=== PATIENT | female | born 1975 | race Caucasian/White ===

== ENCOUNTER → 2020-09-24 | Outpatient (CLI) | payer BC ==
--- NOTE | 2020-09-26 14:26 | MM ---
Reason for exam: screening (asymptomatic). Baseline mammogram. History: Patient had first child at age 33. Family history of breast cancer in maternal aunt at age 50. Physical Findings: Nurse did not find any significant physical abnormalities on exam. MG Screening Mammo w CAD Bilateral CC and MLO view(s) were taken. There are scattered fibroglandular densities. ASSESSMENT: Benign, BI-RAD 2 RECOMMENDATION: Routine screening mammogram of both breasts in 1 year.
== END | disposition home or self-care (01) ==
LOC: RADMAMWWP 14:27
PROVIDERS: ATTEND Family Medicine
DX: Z12.31 Encounter for screening mammogram for malignant neoplasm of breast (principal); Z80.3 Family history of malignant neoplasm of breast
CPT/HCPCS: 77067

== ENCOUNTER → 2020-12-11 | Outpatient (CLI) | payer BC ==
--- NOTE | 2020-12-11 19:32 | US ---
EXAMINATION TYPE: US thyroid st tissue head/neck DATE OF EXAM: 12/11/2020 COMPARISON: NONE CLINICAL HISTORY: 45-year-old female E04.9 Goiter. Neck thickening; patient stated thyroid bloodwork is normal. GLAND SIZE: Right Lobe: 6.3 x 2.9 x 3.2 cm Overall Parenchyma: heterogenous Left Lobe: 4.6 x 1.9 x 1.7 cm Overall Parenchyma: homogeneous Isthmus Thickness: 0.4 cm NODULES RIGHT: # of nodules measured on right: 2 with largest measured as consolidation of multilobular are a 1. 4.4 X 3.4 x 3.9 cm, mid and lower pole , TR3 solid or almost completely solid, multilobular and very heterogeneous nodule, which is wider than tall, with lobulated or irregular margins, without ech ogenic foci. 2. 0.8 X 0.9 x 0.6 cm, upper pole, solid or almost completely solid, hypoechoic TR 4 nodule, which is wider than tall, with smooth margins, without echogenic foci. LEFT: # of nodules measured on left: 1 1. 0.4 X 0.3 x 0.3 cm, lower pole, solid or almost completely solid, hypoechoic TR 4 nodule, which is wide as is tall, with smooth margins, without echogenic foci. ISTHMUS: # of nodules measured in the isthmus: 0 Bilateral neck scanned: superior to left thyroid 2 lymph nodes are seen with largest = 1.5 x 1.0 x 0. 8cm., Prominent but nonenlarged IMPRESSION: 1. Nodular and enlarged right lobe of the thyroid gland. There is a very heterogeneous lobulated nodu le within the right lower pole measuring up to 4.4 cm. FNA can be performed. 2. Two additional small solid TR 4 nodules, one on each side, measuring up to 9 mm can be followed.
== END | disposition home or self-care (01) ==
LOC: RADUSWWP 13:30
PROVIDERS: ATTEND Family Medicine
DX: E04.2 Nontoxic multinodular goiter (principal)
CPT/HCPCS: 76536

== ENCOUNTER 2021-01-27 14:41 | Inpatient (IN) | payer BC ==
[2021-01-27] MEDS ORDERED: MORPHINE SULFATE 4 MG/ML SYRINGE IVP STA (15:53)
[2021-01-27] MEDS ORDERED: ONDANSETRON 4 MG/2 ML VIAL IVP STA (15:53)
[2021-01-27] MEDS ORDERED: SODIUM CHLORIDE 0.9% 1,000 ML IV STA (15:53)
[2021-01-27] MEDS ORDERED: ACETAMINOPHEN TAB 500 MG TAB PO STA (15:53)
--- NOTE | 2021-01-27 16:04 | ED ---
General Adult HPI - General Source: patient, RN notes reviewed Mode of arrival: ambulatory Limitations: no limitations <Billy Gandhi - Last Filed: 01/27/21 17:02> <Yovanny Garza - Last Filed: 01/27/21 19:31> - General Chief complaint: Abdominal Pain Stated complaint: Abdominal Pain Time Seen by Provider: 01/27/21 15:47 - History of Present Illness Initial comments: 45-year-old female presents to the emergency room for a chief complaint of abdominal pain. Patient has had lower abdominal pain since yesterday morning. States yesterday it was very slight. However today she states is much worse. It is throughout her lower abdomen. Denies nausea vomiting diarrhea. Denies any cold symptoms. States that on her ride over all the bumps in the road were hurting. Doesn't seem to hurt in the upper abdomen. Was not aware of fevers until she got to the emergency room.Patient has no other complaints at this time including shortness of breath, chest pain, nausea or vomiting, headache, or visual changes. (Billy Gandhi) - Related Data Home Medications Medication Instructions Recorded Confirmed [id number] Acid 1 each PO DAILY 09/06/13 09/20/13 [-U Capsule] Previous Rx's Medication Instructions Recorded Ibuprofen [Motrin] 200 - 400 mg PO Q6HR PRN #1 tab 09/19/13 Cephalexin [Keflex] 500 mg PO Q6HR #40 cap 09/21/13 Allergies Allergy/AdvReac Type Severity Reaction Status Date / Time No Known Allergies Allergy Verified 01/27/21 15:09 Review of Systems ROS Other: All systems not noted in ROS Statement are negative. <Billy Gandhi - Last Filed: 01/27/21 17:02> ROS Other: All systems not noted in ROS Statement are negative. <Yovanny Garza - Last Filed: 01/27/21 19:31> ROS Statement: Those systems with pertinent positive or pertinent negative responses have been documented in the HPI. Past Medical History Past Medical History: No Reported History History of Any Multi-Drug Resistant Organisms: None Reported Past Surgical History: Section Past Anesthesia/Blood Transfusion Reactions: No Reported Reaction Past Psychological History: Depression Smoking Status: Never smoker Past Alcohol Use History: None Reported Past Drug Use History: None Reported <Billy Gandhi - Last Filed: 01/27/21 17:02> General Exam Limitations: no limitations General appearance: alert, in no apparent distress Head exam: Present: atraumatic Eye exam: Present: normal appearance, PERRL, EOMI. Absent: scleral icterus, conjunctival injection ENT exam: Present: normal exam, mucous membranes moist Neck exam: Present: normal inspection, full ROM. Absent: tenderness Respiratory exam: Present: normal lung sounds bilaterally. Absent: respiratory distress, wheezes Cardiovascular Exam: Present: regular rate, normal rhythm, normal heart sounds GI/Abdominal exam: Present: soft, normal bowel sounds. Absent: distended, tenderness Neurological exam: Present: alert <Billy Gandhi - Last Filed: 01/27/21 17:02> Course Vital Signs 01/27/21 01/27/21 01/27/21 15:06 16:09 18:19 Temperature 101.1 F H 101 F H Pulse Rate 95 87 Respiratory 17 20 20 Rate Blood Pressure 136/89 126/84 O2 Sat by Pulse 98 99 Oximetry Medical Decision Making - Lab Data Result diagrams: 01/27/21 16:24 01/27/21 16:24 <Billy Gandhi - Last Filed: 01/27/21 17:02> - Lab Data Result diagrams: 01/27/21 16:24 01/27/21 16:24 - Radiology Data Radiology results: report reviewed (Extensive inflammatory changes diverticulitis) <Yovanny Garza - Last Filed: 01/27/21 19:31> - Medical Decision Making care signed out to Dr Garza, 5 pm. (Billy Gandhi) Patient reevaluated by myself, Dr. Garza. Patient is resting comfortably in bed. Abdomen is soft with moderate tenderness left lower quadrant. CT and labs reviewed. Case discussed with Dr. Bueno, who will admit covering Dr. Scanlon. (Yovanny Garza) - Lab Data Lab Results 01/27/21 01/27/21 01/27/21 Range/Units 16:24 16:24 16:24 WBC 12.2 H (3.8-10.6) k/uL RBC 4.70 (3.80-5.40) m/uL Hgb 14.2 (11.4-16.0) gm/dL Hct 41.0 (34.0-46.0) % MCV 87.1 (80.0-100.0) fL MCH 30.2 (25.0-35.0) pg MCHC 34.6 (31.0-37.0) g/dL RDW 12.9 (11.5-15.5) % Plt Count 239 (150-450) k/uL MPV 8.5 Neutrophils % 86 % Lymphocytes % 9 % Monocytes % 4 % Eosinophils % 1 % Basophils % 0 % Neutrophils # 10.4 H (1.3-7.7) k/uL Lymphocytes # 1.1 (1.0-4.8) k/uL Monocytes # 0.5 (0-1.0) k/uL Eosinophils # 0.1 (0-0.7) k/uL Basophils # 0.0 (0-0.2) k/uL Sodium 136 L (137-145) mmol/L Potassium 3.6 (3.5-5.1) mmol/L Chloride 101 (98-107) mmol/L Carbon Dioxide 25 (22-30) mmol/L Anion Gap 10 mmol/L BUN 12 (7-17) mg/dL Creatinine 0.78 (0.52-1.04) mg/dL Est GFR (CKD-EPI)AfAm >90 (>60 ml/min/1.73 sqM) Est GFR (CKD-EPI)NonAf >90 (>60 ml/min/1.73 sqM) Glucose 144 H (74-99) mg/dL Plasma Lactic Acid [place] (0.7-2.0) mmol/L Calcium 9.4 (8.4-10.2) mg/dL Total Bilirubin 1.6 H (0.2-1.3) mg/dL AST 14 (14-36) U/L ALT 25 (4-34) U/L Alkaline Phosphatase 61 (38-126) U/L Total Protein 6.7 (6.3-8.2) g/dL Albumin 4.0 (3.5-5.0) g/dL Amylase 38 (30-110) U/L Lipase 33 (23-300) U/L Urine Color Yellow Urine Appearance Cloudy H (Clear) Urine pH 6.0 (5.0-8.0) Ur Specific [place] 1.027 (1.001-1.035) Urine Protein 1+ H (Negative) Urine Glucose (UA) Negative (Negative) Urine Ketones 1+ H (Negative) Urine Blood Trace H (Negative) Urine Nitrite Negative (Negative) Urine Bilirubin Negative (Negative) Urine Urobilinogen 3.0 (<2.0) mg/dL Ur Leukocyte Esterase Large H (Negative) Urine RBC 11 H (0-5) /hpf Urine WBC 7 H (0-5) /hpf Ur Squamous Epith Cells 11 H (0-4) /hpf Urine Bacteria Few H (None) /hpf Urine Mucus Many H (None) /hpf Urine HCG, Qual (Not Detectd) Coronavirus (PCR) (Not Detectd) 01/27/21 01/27/21 01/27/21 Range/Units 16:24 16:24 16:24 WBC (3.8-10.6) k/uL RBC (3.80-5.40) m/uL Hgb (11.4-16.0) gm/dL Hct (34.0-46.0) % MCV (80.0-100.0) fL MCH (25.0-35.0) pg MCHC (31.0-37.0) g/dL RDW (11.5-15.5) % Plt Count (150-450) k/uL MPV Neutrophils % % Lymphocytes % % Monocytes % % Eosinophils % % Basophils % % Neutrophils # (1.3-7.7) k/uL Lymphocytes # (1.0-4.8) k/uL Monocytes # (0-1.0) k/uL Eosinophils # (0-0.7) k/uL Basophils # (0-0.2) k/uL Sodium (137-145) mmol/L Potassium (3.5-5.1) mmol/L Chloride (98-107) mmol/L Carbon Dioxide (22-30) mmol/L Anion Gap mmol/L BUN (7-17) mg/dL Creatinine (0.52-1.04) mg/dL Est GFR (CKD-EPI)AfAm (>60 ml/min/1.73 sqM) Est GFR (CKD-EPI)NonAf (>60 ml/min/1.73 sqM) Glucose (74-99) mg/dL Plasma Lactic Acid [place] 1.4 (0.7-2.0) mmol/L Calcium (8.4-10.2) mg/dL Total Bilirubin (0.2-1.3) mg/dL AST (14-36) U/L ALT (4-34) U/L Alkaline Phosphatase (38-126) U/L Total Protein (6.3-8.2) g/dL Albumin (3.5-5.0) g/dL Amylase (30-110) U/L Lipase (23-300) U/L Urine Color Urine Appearance (Clear) Urine pH (5.0-8.0) Ur Specific [place] (1.001-1.035) Urine Protein (Negative) Urine Glucose (UA) (Negative) Urine Ketones (Negative) Urine Blood (Negative) Urine Nitrite (Negative) Urine Bilirubin (Negative) Urine Urobilinogen (<2.0) mg/dL Ur Leukocyte Esterase (Negative) Urine RBC (0-5) /hpf Urine WBC (0-5) /hpf Ur Squamous Epith Cells (0-4) /hpf Urine Bacteria (None) /hpf Urine Mucus (None) /hpf Urine HCG, Qual Not Detected (Not Detectd) Coronavirus (PCR) Not Detected (Not Detectd) Disposition <Billy Gandhi - Last Filed: 01/27/21 17:02> Is patient prescribed a controlled substance at d/c from ED?: No Decision Time: 19:31 <Yovanny Garza - Last Filed: 01/27/21 19:31> Clinical Impression: Diverticulitis Disposition: ADMITTED IP TO THIS HOSP Referrals: Renetta Berger MD [Primary Care Provider] - 1-2 days
[2021-01-27 16:43] LABS: Basophils % (A) 0 %; Eosinophils # (A) 0.1 k/uL (0-0.7); Eosinophils % (A) 1 %; HGB 14.2 gm/dL (11.4-16.0); Lymphocytes # (A) 1.1 k/uL (1.0-4.8); Lymphocytes % (A) 9 %; MCH 30.2 pg (25.0-35.0); MCHC 34.6 g/dL (31.0-37.0); MCV 87.1 fL (80.0-100.0); Mean Platelet Volume 8.5; Monocytes # (A) 0.5 k/uL (0-1.0); Monocytes % (A) 4 %; Neutrophils # (A) 10.4 k/uL (1.3-7.7); Neutrophils % (A) 86 %; Platelet Count 239 k/uL (150-450); RDW 12.9 % (11.5-15.5); WBC 12.2 k/uL (3.8-10.6)
[2021-01-27 16:52] LABS: Appearance,Urine Cloudy (Clear); Bacteria,Urine Few /hpf; Bilirubin,Urine Negative (Negative); Blood,Urine Trace (Negative); Color,Urine Yellow; Glucose,Urine (UA) Negative (Negative); Ketones,Urine 1+ (Negative); Leukocyte Esterase,Urine Large (Negative); Mucus,Urine Many /hpf; Nitrite,Urine Negative (Negative); Protein,Urine 1+ (Negative); RBC,Urine 11 /hpf (0-5); Specific Gravity,Urine 1.027 (1.001-1.035); Squamous Epithelial Cell,Urine 11 /hpf (0-4); WBC,Urine 7 /hpf (0-5)
[2021-01-27 16:56] LABS: ALT 25 U/L (4-34); AST 14 U/L (14-36); African American GFR (CKD) >90 (>60 ml/min/1.73 sqM); Alkaline Phosphatase 61 U/L (38-126); Amylase 38 U/L (30-110); Anion Gap 10 mmol/L; Blood Urea Nitrogen 12 mg/dL (7-17); Calcium 9.4 mg/dL (8.4-10.2); Carbon Dioxide 25 mmol/L (22-30); Chloride 101 mmol/L (98-107); Glucose 144 mg/dL (74-99); Lipase 33 U/L (23-300); Non-African American GFR(CKD) >90 (>60 ml/min/1.73 sqM); Potassium 3.6 mmol/L (3.5-5.1); Sodium 136 mmol/L (137-145); Total Bilirubin 1.6 mg/dL (0.2-1.3); Total Protein 6.7 g/dL (6.3-8.2)
--- NOTE | 2021-01-27 17:58 | CT ---
EXAMINATION TYPE: CT abdomen pelvis w con DATE OF EXAM: 01/27/2021 COMPARISON: None HISTORY: LLQ abdominal pain, fever CT DLP: 2285.9 mGycm Automated exposure control for dose reduction was used. CONTRAST: Performed with IV Contrast, patient injected with 100 ml mL of Isovue 300. Images obtained from the diaphragm to the floor the pelvis with IV contrast. Lung bases are clear. There is no pleural effusion. Heart size is normal. There is no pericardial eff usion. Liver spleen pancreas stomach appear intact. The bile ducts are not dilated. Gallbladder appears norm al. There are small hepatic cysts that measure up to 1 cm. There is no adrenal mass. Kidneys show satisfactory contrast opacification. There is no hydronephrosi s. Ureters are not dilated. Delayed images show normal renal excretion. There is no retroperitoneal a denopathy. Bladder distends smoothly. There is no inguinal hernia. There is no free fluid in the pelv is. There is extensive fat stranding around the mid sigmoid colon. There are sigmoid diverticula. Appendi x is medial and appears normal. There is no evidence of free air. There is no ascites. The lumbar vertebra have normal alignment. Posterior elements are intact. Facet joints are intact. Th e bony pelvis is intact. Hip joints are intact. IMPRESSION: Extensive inflammatory changes around the mid sigmoid colon with fat stranding and edema. There are n umerous sigmoid diverticula. There is mild sigmoid colon wall thickening. There is consistent with ac liz diverticulitis. No drainable fluid collection.
[2021-01-27] MEDS ORDERED: PIPERACILLIN-TAZOBACTAM 3.375 GM in SODIUM CHLORIDE 0.9% 100 ML IVPB STA (19:29)
[2021-01-27] MEDS ORDERED: ONDANSETRON 4 MG/2 ML VIAL IVP PRN (19:31)
[2021-01-27] MEDS ORDERED: NALOXONE 0.4 MG/ML 1 ML VIAL IV PRN (19:31)
[2021-01-27] MEDS ORDERED: HYDROmorphone 1 MG/ML 1 ML SYRINGE IVP PRN (19:31)
[2021-01-27] MEDS ORDERED: HYDROmorphone 0.5 MG/0.5 ML SYRINGE IVP PRN (19:31)
[2021-01-27] MEDS: SODIUM CHLORIDE 0.9% 1,000 ML IV SCH (20:11)
--- NOTE | 2021-01-27 22:28 | P.HPIM ---
History of Present Illness H&P Date: 01/27/21 Chief Complaint: Abdominal pain 45-year-old female with hypertension Patient comes in with 1 day history of lower abdominal pain started yesterday morning when she felt some mild lower abdominal pain didn't think much of it however today was getting worse especially with movement. She felt some chills denies any fevers at home she denies any nausea vomiting or diarrhea denies any GI bleeding. She denies any recent travel. He denies any upper respiratory infection symptoms. Denies any sick contact. She reports that she's been in good health. Denies any urinary changes denies any hematuria dysuria or frequency. Denies any history of renal stones. Patient describes the pain as sharp and sudden happens in the lower belly diffusely, at peak is 8 out of 10 in severity comes and goes. And was worse today than yesterday. Workup in the ED showed leukocytosis. Slightly elevated bilirubin. Urine analysis was a contaminated sample. HCG negative CT of the abdomen showed diffuse diverticular disease with acute diverticulitis no abscess Review of Systems Pertinent positives as noted in HPI. All other systems were reviewed and are negative Past Medical History Past Medical History: No Reported History History of Any Multi-Drug Resistant Organisms: None Reported Past Surgical History: Section Additional Past Surgical History / Comment(s): Thyroid nodule biopsy - negative. Past Anesthesia/Blood Transfusion Reactions: No Reported Reaction Past Psychological History: Depression Additional Psychological History / Comment(s): situational, mild Smoking Status: Never smoker Past Alcohol Use History: None Reported Past Drug Use History: None Reported - Past Family History Mother Additional Family Medical History / Comment(s): Diverticulosis Medications and Allergies Home Medications Medication Instructions Recorded Confirmed Type Cholecalciferol [Vitamin D3 (25 25 mcg PO DAILY 01/27/21 01/27/21 History Mcg = 1000 Iu)] Hydrochlorothiazide 12.5 mg PO DAILY 01/27/21 01/27/21 History [hydroCHLOROthiazide] Phentermine HCl [Adipex P] 15 mg PO DAILY 01/27/21 01/27/21 History Allergies Allergy/AdvReac Type Severity Reaction Status Date / Time No Known Allergies Allergy Verified 01/27/21 20:20 Physical Exam Vitals: Vital Signs Temp Pulse Pulse Resp BP BP Pulse Ox 01/27/21 20:24 98.5 F 78 16 115/80 98 01/27/21 19:54 99.4 F 01/27/21 18:19 101 F H 87 20 126/84 99 01/27/21 16:09 20 01/27/21 15:06 101.1 F H 95 17 136/89 98 Intake and Output 01/27/21 01/27/21 01/27/21 06:59 14:59 22:59 Other: Voiding Method Toilet Weight 129.7 kg Constitutional: No acute distress, conversant, pleasant Eyes: Anicteric sclerae, moist conjunctiva, Pupils equal round reactive to light ENMT: NC/AT Oropharynx clear, no erythema, or exudates Neck: Supple, FROM, no masses, or JVD No carotid bruits No thyromegaly Lungs: Clear to auscultation Clear to percussion Normal respiratory effort, no accessory muscle use Cardiovascular: Heart regular in rate and rhythm, No murmurs, gallops, or rubs No peripheral edema Abdominal: Soft Discomfort to deep palpation of the left lower quadrant, no guarding, rebound or rigidity Abdomen moving with respiration Normoactive bowel sounds No hepatomegaly, No splenomegaly No palpable mass No abdominal wall hernia noted Skin: Normal temperature, tone, texture, turgor No induration No subcutaneous nodules No rash, lesions No ulcers Extremities: No digital cyanosis No clubbing Pedal pulses intact and symmetrical Radial pulses intact and symmetrical No calf tenderness Psychiatric: Alert and oriented to person, place and time Appropriate affect fair judgement Neuro Muscles Strength 5/5 in all 4 extremities Sensation to light touch grossly present throughout Cranial nerves II-XII grossly intact No focal sensory deficits Lymphatics: no palpable cervical or supraclavicular , or inguinal lymph nodes Results CBC & Chem 7: 01/27/21 16:24 01/27/21 16:24 Labs: Abnormal Lab Results - Last 24 Hours (Table) 01/27/21 01/27/21 01/27/21 Range/Units 16:24 16:24 16:24 WBC 12.2 H (3.8-10.6) k/uL Neutrophils # 10.4 H (1.3-7.7) k/uL Sodium 136 L (137-145) mmol/L Glucose 144 H (74-99) mg/dL Total Bilirubin 1.6 H (0.2-1.3) mg/dL Urine Appearance Cloudy H (Clear) Urine Protein 1+ H (Negative) Urine Ketones 1+ H (Negative) Urine Blood Trace H (Negative) Ur Leukocyte Esterase Large H (Negative) Urine RBC 11 H (0-5) /hpf Urine WBC 7 H (0-5) /hpf Ur Squamous Epith Cells 11 H (0-4) /hpf Urine Bacteria Few H (None) /hpf Urine Mucus Many H (None) /hpf Thrombosis Risk Factor Assmnt - Choose All That Apply Any of the Below Risk Factors Present?: Yes Each Factor Represents 1 point: Age 41-60 years, Obesity (BMI >25) Other Risk Factors: No Other congenital or acquired thrombophilia - If yes, enter type in comment: No Thrombosis Risk Factor Assessment Total Risk Factor Score: 2 Thrombosis Risk Factor Assessment Level: Low Risk Assessment and Plan Assessment: Sepsis Acute diverticulitis Follow-up cultures Empiric antibiotics with Zosyn Pain control Empiric antibiotics Zosyn IV fluid hydration with normal saline Monitor vital signs Tylenol for fever Hypertension Hold hydrochlorothiazide Monitor blood pressure DVT prophylaxis heparin subcu 3 times a day Full code Anticipated length of stay more than 2 midnights Anticipated discharge home
[2021-01-28] MEDS: SODIUM CHLORIDE 0.9% 1,000 ML IV SCH ×3 (04:05→20:42)
[2021-01-28] MEDS: PIPERACILLIN-TAZOBACTAM 3.375 GM in SODIUM CHLORIDE 0.9% 100 ML IVPB SCH ×3 (04:06→20:38)
[2021-01-28] MEDS: ACETAMINOPHEN TAB 325 MG TAB PO PRN ×2 (04:42→16:49)
[2021-01-28 05:43] LABS: ALT 20 U/L (4-34); AST 13 U/L (14-36); African American GFR (CKD) >90 (>60 ml/min/1.73 sqM); Albumin 3.3 g/dL (3.5-5.0); Alkaline Phosphatase 59 U/L (38-126); Blood Urea Nitrogen 9 mg/dL (7-17); Calcium 8.7 mg/dL (8.4-10.2); Carbon Dioxide 23 mmol/L (22-30); Chloride 105 mmol/L (98-107); Glucose 106 mg/dL (74-99); Non-African American GFR(CKD) >90 (>60 ml/min/1.73 sqM); Total Bilirubin 1.5 mg/dL (0.2-1.3); Total Protein 5.9 g/dL (6.3-8.2)
[2021-01-28 05:44] LABS: Basophils % (A) 0 %; Eosinophils # (A) 0.1 k/uL (0-0.7); Eosinophils % (A) 1 %; HCT 38.2 % (34.0-46.0); Lymphocytes # (A) 1.2 k/uL (1.0-4.8); Lymphocytes % (A) 13 %; MCH 29.4 pg (25.0-35.0); MCHC 34.1 g/dL (31.0-37.0); Mean Platelet Volume 8.1; Monocytes # (A) 0.5 k/uL (0-1.0); Monocytes % (A) 5 %; Neutrophils # (A) 7.4 k/uL (1.3-7.7); Neutrophils % (A) 80 %; Platelet Count 199 k/uL (150-450); RBC 4.44 m/uL (3.80-5.40); WBC 9.2 k/uL (3.8-10.6)
[2021-01-28 06:07] LABS: Anion Gap 8 mmol/L; Potassium 3.7 mmol/L (3.5-5.1); Sodium 136 mmol/L (137-145)
[2021-01-28] MEDS: PANTOPRAZOLE 40 MG/10 ML VIAL IV SCH (08:17)
--- NOTE | 2021-01-28 15:50 | P.PN ---
Subjective Progress Note Date: 01/28/21 Principal diagnosis: diverticulitis Feeling better currently. Pain is improved. Would like to try and advance her diet. Objective - Vital Signs Vital signs: Vital Signs Temp 98.9 F 01/28/21 14:00 Pulse 77 01/28/21 14:00 Resp 18 01/28/21 14:00 BP 128/86 01/28/21 14:00 Pulse Ox 99 01/28/21 14:00 Intake & Output 01/27/21 01/28/21 01/28/21 18:59 06:59 18:59 Intake Total 500 Balance 500 Weight 133.81 kg 129.7 kg Intake: Oral 500 Other: Voiding Method Toilet Toilet # Voids 1 - Exam Constitutional: No acute distress, conversant, pleasant Eyes:Anicteric sclerae, moist conjunctiva, no lid-lag, PERRLA, ENMT: Oropharynx clear, no erythema, exudates Neck: Supple, FROM, no masses, or JVD, No carotid bruits, No thyromegaly Lungs: Clear to auscultation, Clear to percussion, Normal respiratory effort, no accessory muscle use Cardiovascular: Heart regular in rate and rhythm, No murmurs, gallops, or rubs, No peripheral edema Abdominal: Soft, LLQ tender, no guarding, rebound or rigidity, Normoactive bowel sounds, No hepatomegaly, No splenomegaly, No palpable mass Skin: Normal temperature, tone, texture, turgor, no induration, No subcutaneous nodules, No rash, lesions, No ulcers Extremities: No digital cyanosis, No clubbing, Pedal pulses intact and symmetrical, Radial pulses intact and symmetrical, No calf tenderness Psychiatric: Alert and oriented to person, place and time, appropriate affect, intact judgement Neuro: Muscles Strength 5/5 in all 4 extremities, Sensation to light touch grossly present throughout, Cranial nerves II-XII grossly intact, no focal sensory deficits - Labs CBC & Chem 7: 01/28/21 04:49 01/28/21 04:49 Labs: Abnormal Lab Results - Last 24 Hours (Table) 01/27/21 01/27/21 01/27/21 Range/Units 16:24 16:24 16:24 WBC 12.2 H (3.8-10.6) k/uL Neutrophils # 10.4 H (1.3-7.7) k/uL Sodium 136 L (137-145) mmol/L Glucose 144 H (74-99) mg/dL Total Bilirubin 1.6 H (0.2-1.3) mg/dL AST (14-36) U/L Total Protein (6.3-8.2) g/dL Albumin (3.5-5.0) g/dL Urine Appearance Cloudy H (Clear) Urine Protein 1+ H (Negative) Urine Ketones 1+ H (Negative) Urine Blood Trace H (Negative) Ur Leukocyte Esterase Large H (Negative) Urine RBC 11 H (0-5) /hpf Urine WBC 7 H (0-5) /hpf Ur Squamous Epith Cells 11 H (0-4) /hpf Urine Bacteria Few H (None) /hpf Urine Mucus Many H (None) /hpf 01/28/21 Range/Units 04:49 WBC (3.8-10.6) k/uL Neutrophils # (1.3-7.7) k/uL Sodium 136 L (137-145) mmol/L Glucose 106 H (74-99) mg/dL Total Bilirubin 1.5 H (0.2-1.3) mg/dL AST 13 L (14-36) U/L Total Protein 5.9 L (6.3-8.2) g/dL Albumin 3.3 L (3.5-5.0) g/dL Urine Appearance (Clear) Urine Protein (Negative) Urine Ketones (Negative) Urine Blood (Negative) Ur Leukocyte Esterase (Negative) Urine RBC (0-5) /hpf Urine WBC (0-5) /hpf Ur Squamous Epith Cells (0-4) /hpf Urine Bacteria (None) /hpf Urine Mucus (None) /hpf Assessment and Plan Plan: Sepsis Acute diverticulitis Follow-up cultures Empiric antibiotics with Zosyn Pain control IV fluid hydration with normal saline Advance diet as tolerated Tylenol for fever Hypertension Hold hydrochlorothiazide Monitor blood pressure DVT prophylaxis heparin subcu 3 times a day Full code Anticipated discharge home
[2021-01-29] MEDS: SODIUM CHLORIDE 0.9% 1,000 ML IV SCH (03:53)
[2021-01-29] MEDS: PIPERACILLIN-TAZOBACTAM 3.375 GM in SODIUM CHLORIDE 0.9% 100 ML IVPB SCH ×3 (03:53→19:41)
[2021-01-29] MEDS: PANTOPRAZOLE 40 MG/10 ML VIAL IV SCH (07:52)
--- NOTE | 2021-01-29 13:26 | P.PN ---
Subjective Progress Note Date: 01/29/21 Hospital course: Patient is a 45-year-old female with a past medical history of hypertension. She presented to the hospital on 01/27/21 with a chief complaint of abdominal pain and chills. workup in the emergency department revealed leukocytosis and elevated bilirubin. CT was then completed with findings consistent of acute diverticulitis with extensive inflammatory changes around the mid sigmoid colon with fat stranding and edema accompanied by numerous sigmoid diverticula, mild sigmoid colon wall thickening, with no reported drainable fluid collections. U rinalysis obtained but was contaminated specimen. Urine hCG negative for . patient was admitted under our services and started on IV antibiotics Zosyn for treatment of acute diverticulitis. Physical exam: Patient was seen and fully evaluated at bedside this morning. She reports improvement of pain and her clear liquid diet was tolerated and advanced to a low fiber diet this morning. Blood cultures showing no growth after 24 hours. patient continues to receive IV antibiotics Zosyn for treatment of acute diverticulitisand has not received Zofran or nausea or Dilaudid for pain in over 24 hours. Vital signs stable and patient has remained afebrile for greater than 24 hours as well. We will monitor patient to evaluate how she tolerates adv ancing of diet and continued pain control. Plan to repeat CMP and CBC with a.m. labs and likely discharge home tomorrow morning. Vital signs reviewed and stable. General: Nontoxic, no distress and appears stated age. Derm: Skin warm and dry, normal coloration for ethnicity. Head: Atraumatic, normocephalic and symmetric. Eyes: EOMs intact, no lid lag, and anicteric sclera Mouth: no lip lesions, mucus membranes moist Cardiovascular: regular rate and rhythm with normal S1S2, no murmur, positive posterior tibial pulses bilaterally, and cap refill < 2 seconds. Lungs: Respirations even, regular, and unlabored on room air. Lungs CTA bilaterally, no rhonchi, no rales, no wheezing, and no accessory muscle usage. Abdominal: soft, slight "soreness" reported upon palpation to LLQ, no guarding, no appreciable organomegaly Ext: ROM intact. No gross muscle atrophy, no edema, no contractures Neuro: Speech clear, face symmetrical and CN II-XII grossly intact with no noted focal neuro deficits Psych: Alert and oriented to person, place, time, and situation. Appropriate and pleasant affect. Assessment and Plan of Care: Sepsis Acute diverticulitis Elevated bilirubin -Blood cultures showing no growth after 24 hours -Continue Empiric antibiotics with Zosyn for treatment of acute diverticulitis -Pain control -Advance diet as tolerated -Tylenol as needed for fever -Repeat a.m. labs Hypertension -Hold hydrochlorothiazide -Monitor blood pressure CODE STATUS: full code DVT prophylaxis: SCDs Discussed with: patient and RN Anticipated discharge date: Tomorrow morning Anticipated discharge place: Home A total of 45 minutes was spent on the care of this complex patient more than 50% of the time was spent in counseling and care coordination. Objective - Vital Signs Vital signs: Vital Signs Temp 98.2 F 01/29/21 07:36 Pulse 73 01/29/21 07:36 Resp 18 01/29/21 07:36 BP 120/78 01/29/21 07:36 Pulse Ox 97 01/29/21 07:36 Intake & Output 01/28/21 01/29/21 01/29/21 18:59 06:59 18:59 Intake Total 220 Balance 220 Intake: Oral 220 Other: Voiding Method Toilet Toilet # Voids 3 - Labs CBC & Chem 7: 01/28/21 04:49 01/28/21 04:49 Labs: Microbiology - Last 24 Hours (Table) 01/27/21 16:17 Blood Culture - Preliminary Blood No Growth after 24 hours 01/27/21 16:02 Blood Culture - Preliminary Blood No Growth after 24 hours
[2021-01-30] MEDS: PIPERACILLIN-TAZOBACTAM 3.375 GM in SODIUM CHLORIDE 0.9% 100 ML IVPB SCH (03:36)
[2021-01-30 06:42] LABS: Basophils % (A) 1 %; Eosinophils # (A) 0.2 k/uL (0-0.7); Eosinophils % (A) 3 %; Lymphocytes # (A) 1.2 k/uL (1.0-4.8); Lymphocytes % (A) 25 %; MCH 29.6 pg (25.0-35.0); MCHC 34.3 g/dL (31.0-37.0); MCV 86.2 fL (80.0-100.0); Mean Platelet Volume 8.2; Monocytes # (A) 0.2 k/uL (0-1.0); Monocytes % (A) 5 %; Neutrophils # (A) 3.1 k/uL (1.3-7.7); Neutrophils % (A) 64 %; Platelet Count 261 k/uL (150-450); RBC 4.41 m/uL (3.80-5.40); RDW 12.9 % (11.5-15.5); WBC 4.8 k/uL (3.8-10.6)
[2021-01-30 07:02] LABS: ALT 18 U/L (4-34); AST 16 U/L (14-36); African American GFR (CKD) >90 (>60 ml/min/1.73 sqM); Albumin 3.4 g/dL (3.5-5.0); Alkaline Phosphatase 56 U/L (38-126); Anion Gap 7 mmol/L; Blood Urea Nitrogen 6 mg/dL (7-17); Calcium 9.2 mg/dL (8.4-10.2); Carbon Dioxide 24 mmol/L (22-30); Chloride 109 mmol/L (98-107); Glucose 102 mg/dL (74-99); Non-African American GFR(CKD) >90 (>60 ml/min/1.73 sqM); Potassium 3.7 mmol/L (3.5-5.1); Sodium 140 mmol/L (137-145); Total Bilirubin 0.6 mg/dL (0.2-1.3); Total Protein 6.2 g/dL (6.3-8.2)
[2021-01-30] MEDS: PANTOPRAZOLE 40 MG/10 ML VIAL IV SCH (08:07)
[2021-01-30 08:09] VITALS: BP 128/88; PULSE 74; RESP 17; TEMP 98.1
--- NOTE | 2021-01-30 19:25 | P.DS ---
<Andres Mckay - Last Filed: 01/30/21 19:19> Providers Expected date of discharge: 01/30/21 Hospital Course: Discharge Diagnosis: Sepsis Acute diverticulitis Elevated bilirubin, resolved Hypertension Hospital Course: Patient is a 45-year-old female with a past medical history of hypertension. She presented to the hospital on 01/27/21 with a chief complaint of abdominal pain and chills. workup in the emergency department revealed leukocytosis and elevated bilirubin. CT was then completed with findings consistent of acute diverticulitis with extensive inflammatory changes around the mid sigmoid colon with fat stranding and edema accompanied by numerous sigmoid diverticula, mild sigmoid colon wall thickening, with no reported drainable fluid collections. Urinalysis obtained but was contaminated specimen. Urine hCG negative for . Patient was admitted under our services and started on IV antibiotics Zosyn for treatment of acute diverticulitis. Throughout admission and patient received IV hydration and antibiotics. Abdominal pain completely subsided, patient's diet increased to low fiber and tolerated well. Blood cultures showing no growth after 72 hours. Leukocytosis completely resolved from previous 12.2 down to 4.8. Hyperbilirubinemia resolved. Patient's condition stable. Patient being discharged home on 7 day course of Augmentin to complete full 10 day course of antibiotics. Patient to follow up outpatient with PCP as well as GI/general surgery as she will need an outpatient colonoscopy. Physical exam: Patient was seen and fully evaluated at bedside this morning. She reports complete resolution of abdominal pain. She denies any episodes of nausea/vomiting. She is tolerating a low fiber diet. Patient's vital signs stable and she is stable for discharge home at this time denying any further complaints including headache, lightheadedness, dizziness, chest pain, palpitations, shortness of breath, nausea, vomiting, melena, or hematochezia. Patient reports normal bowel and urinary function. Vital signs reviewed and stable. General: Nontoxic, no distress and appears stated age. Derm: Skin warm and dry, normal coloration for ethnicity. Head: Atraumatic, normocephalic and symmetric. Eyes: EOMs intact, no lid lag, and anicteric sclera Mouth: no lip lesions, mucus membranes moist Cardiovascular: regular rate and rhythm with normal S1S2, no murmur, positive posterior tibial pulses bilaterally, and cap refill < 2 seconds. Lungs: Respirations even, regular, and unlabored on room air. Lungs CTA bilater ally, no rhonchi, no rales, no wheezing, and no accessory muscle usage. Abdominal: soft, slight "soreness" reported upon palpation to LLQ, no guarding, no appreciable organomegaly Ext: ROM intact. No gross muscle atrophy, no edema, no contractures Neuro: Speech clear, face symmetrical and CN II-XII grossly intact with no noted focal neuro deficits Psych: Alert and oriented to person, place, time, and situation. Appropriate and pleasant affect. A total of 45 minutes of time were spent preparing this complex discharge summary. Patient Condition at Discharge: Stable Plan - Discharge Summary Discharge Rx Participant: No New Discharge Prescriptions: New Pantoprazole [Protonix] 40 mg PO DAILY 30 Days #30 tab Amoxicillin/Potassium Clav [Augmentin 875-125 Tablet] 1 tab PO Q12HR 7 Days #14 tab Continue Cholecalciferol [Vitamin D3 (25 Mcg = 1000 Iu)] 25 mcg PO DAILY Phentermine HCl [Adipex P] 15 mg PO DAILY Hydrochlorothiazide [hydroCHLOROthiazide] 12.5 mg PO DAILY Discharge Medication List Cholecalciferol [Vitamin D3 (25 Mcg = 1000 Iu)] 25 mcg PO DAILY 01/27/21 [History] Hydrochlorothiazide [hydroCHLOROthiazide] 12.5 mg PO DAILY 01/27/21 [History] Phentermine HCl [Adipex P] 15 mg PO DAILY 01/27/21 [History] Amoxicillin/Potassium Clav [Augmentin 875-125 Tablet] 1 tab PO Q12HR 7 Days #14 tab 01/30/21 [Rx] Pantoprazole [Protonix] 40 mg PO DAILY 30 Days #30 tab 01/30/21 [Rx] Follow up Appointment(s)/Referral(s): Amanda Chen MD [STAFF PHYSICIAN] - 04/02/21 2:30 pm (New patient Will put patient on cancellation list, will call if any appointment comes up sooner. ) Renetta Berger MD [Primary Care Provider] - 1-2 days (Please make appointment after follow up with GI) Zac Lynn MD [STAFF PHYSICIAN] - 1 Week Patient Instructions/Handouts: Diverticulitis (GEN) Activity/Diet/Wound Care/Special Instructions: Activity: As tolerated. Take breaks as needed. Diet: Heart healthy and carb consistent diet. Avoid salts, or foods with hidden salts such as canned or boxed foods and frozen dinners. Extra salt makes your heart work harder and traps the fluid in your body for longer. Special Instructions: Take all of your medications as directed and remember to keep all of your doctor's appointments and follow-up as needed. You will need to follow-up with GI specialist, Dr. Chen or General surgery, Dr. Lynn for colonoscoy once completed treatment. Thank you for allowing us to participate in your care, it was truly a pleasure having you for our patient!!! Discharge Disposition: HOME SELF-CARE <Vanda De Oliveira - Last Filed: 01/30/21 22:27> Providers Date of admission: 01/27/21 19:31 Attending physician: Eliceo Plunkett MD Primary care physician: Renetta Berger [facility] Hospital Course: Andres Mckay NP rendered care for this patient independently, reviewed the findings and plan as documented in the note above. I did not physically speak with or examine the patient on this date.
== END 2021-01-30 11:10 | disposition home or self-care (01) | DRG 872 ==
LOC: EC 14:41 → 6PED 19:31
PROVIDERS: ADMIT Internal Medicine; ATTEND Internal Medicine
DX: A41.9 Sepsis, unspecified organism (principal); K57.32 Diverticulitis of large intestine without perforation or abscess without bleeding; R17 Unspecified jaundice; F32.9 Major depressive disorder, single episode, unspecified; I10 Essential (primary) hypertension; Z20.822 Contact with and (suspected) exposure to COVID-19; Z79.899 Other long term (current) drug therapy
CPT/HCPCS: 36415; 74177; 80053; 81001; 81025; 82150; 83605; 83690; 85025; 87040; 87635; 93005; 96361; 96374; 96375; 99285

== ENCOUNTER 2021-03-26 08:20 | Day surgery (SDC) | payer BC ==
[~2021-03-26 08:20] MED LIST: LIDOCAINE 1% (10MG/ML) FOR IV START INTRADERMA PRN
[2021-03-26 08:57] VITALS: RESP 16; TEMP 98.1
[2021-03-26] MEDS: LACTATED RINGERS 1,000 ML IV SCH ×2 (09:06→09:47)
[2021-03-26] MEDS ORDERED: PROPOFOL 10 MG/ML 20 ML VIAL IV ONE (09:48)
--- NOTE | 2021-03-26 10:06 | P.PCN ---
Date of Procedure: 03/26/21 Procedure(s) Performed: BRIEF HISTORY: Patient is a 45-year-old pleasant white female scheduled for an elective colonoscopy as a part of recent episode of acute sigmoid diverticulitis for which she was treated with antibiotics 2 months ago. Since then she is been having intermittent left lower quadrant abdominal pain. PROCEDURE PERFORMED: Colonoscopy with snare polypectomy. PREOPERATIVE DIAGNOSIS: Recent episode of acute sigmoid diverticulitis/left lower quadrant abdominal pain IV sedation per Anesthesia. PROCEDURE: After informed consent was obtained, the patient, was brought into the endoscopy unit. IV sedation was administered by Anesthesia under continuous monitoring. Digital rectal examination was normal. Initially the Olympus CF-160 flexible video colonoscope was then inserted in the rectum, gradually advanced into the cecum without any difficulty. Careful examination was performed as the scope was gradually being withdrawn. Ileocecal valve and the appendiceal orifice were visualized and appeared normal. Prep was excellent. Mucosa of the cecum, ascending colon, transverse colon, descending colon, appeared normal. In the sigmoid: There was a 5 mm polyp 2 that was removed by snare polypectomy. Scattered sigmoid diverticulosis seen. Rest of the sigmoid colon, and rectum appeared normal. Retroflexion was performed in the rectum and no lesions were seen. The patient tolerated the procedure well. IMPRESSION: Scattered left-sided diverticulosis 5 mm x 2 sigmoid: Polyp status post polypectomy RECOMMENDATIONS: Findings of this examination were discussed with the patient as well as a family. She was advised to follow with the biopsy results. If the biopsy reveals adenoma she can have a repeat colonoscopy in 5 years. The meantime she will be on a high-fiber diet and take fiber supplements a regular basis..
[2021-03-26 10:29] VITALS: BP 146/92; PULSE 63
== END 2021-03-26 11:06 | disposition home or self-care (01) ==
LOC: ORWHC2ENDO 08:20
PROVIDERS: ATTEND Internal Medicine Gastroenterology
DX: K57.32 Diverticulitis of large intestine without perforation or abscess without bleeding (principal)
CPT/HCPCS: 45385; 81025; J2704; 88305